=== PATIENT | female | born 1950 | race Caucasian/White ===

== ENCOUNTER 2019-07-20 10:14 | Emergency (ER) | payer OTHER ==
[~2019-07-20] VITALS: Ht 147.3 cm; Wt 67.1 kg
[2019-07-20] MEDS ORDERED: CANDESARTAN-HC1 EAC1 (10:59)
== END 2019-07-20 14:43 | disposition home or self-care (01) ==
LOC: ER 10:14
DX: L03.116 Cellulitis of left lower limb (principal); M77.32 Calcaneal spur, left foot; S90.32XS Contusion of left foot, sequela; W22.8XXS Striking against or struck by other objects, sequela

== ENCOUNTER 2021-03-08 10:38 | Emergency (ER) | payer OTHER ==
[~2021-03-08] VITALS: Ht 160 cm; Wt 65.8 kg
[~2021-03-08 10:38] MED LIST: CANDESARTAN-HC1 EAC1
[2021-03-08] MEDS ORDERED: NORVASC10 MG (10:55)
== END 2021-03-09 06:34 | disposition home or self-care (01) ==
LOC: ER 10:38
DX: K29.60 Other gastritis without bleeding (principal); R10.31 Right lower quadrant pain; R10.11 Right upper quadrant pain; R11.2 Nausea with vomiting, unspecified; K82.1 Hydrops of gallbladder; K83.8 Other specified diseases of biliary tract; K80.80 Other cholelithiasis without obstruction; N20.0 Calculus of kidney

== ENCOUNTER 2021-03-12 10:56 | Inpatient (IN) | payer OTHER ==
[~2021-03-12] VITALS: Ht 167.6 cm; Wt 155.0 kg
[~2021-03-12 10:56] MED LIST changes: +NORVASC10 MG
--- NOTE | 2021-03-12 11:10 | NUR ---
SE RECIBE PACIENTE ALERTA ORIENTADA ACOMPANADA DE RIBEIRO HIJA. PACIENTE SE LE JUAN ANTONIO DE MURALI LA SEMANA PASADA POR EL DR HOFFMAN SUZANNE FAMILIAR Y AUN LOS VOMITOS SIGUEN PERSISTENTES, PACIENTE VARBALIZA SENTIR DOLOR ABDOMINAL KYLER.
--- NOTE | 2021-03-12 11:54 | NUR ---
PACIENTE ALERTA Y ORIENTADA EN YOEL MARYJANE ESFERAS, ES ORIENTADA SOBRE ORDENES MEDICAS, REFIERE ENTENDER. SE COLECTAN MUESTRAS DE LABORATORIO, SE CANALIZA VENA, SE ADMINISTRA ANIVAL Y SE REALIZA EKG. PENDIENTE CT SCAN DE PECHO.
[2021-03-13] MEDS ORDERED: OMEPRAZOLE40 MG (16:34)
[2021-03-13] MEDS ORDERED: FAMOTIDINE40 MG (16:34)
[2021-03-13] MEDS ORDERED: PANTOPRAZOLE SO40 MG (16:34)
[2021-03-13] MEDS ORDERED: SERTRALINE HCL25 MG (16:34)
== END 2021-03-24 14:53 | disposition designated cancer center or children's hospital (05) | DRG 280 ==
LOC: ER 10:56 → ICU-2 19:40 → ICU 19:40 → SEC-K 19:40 → MEDJ 03-13 09:15 → SEC-K 03-13 10:33 → ICU-2 03-13 13:00 → ICU 03-18 04:39 → MEDJ 03-20 14:48
PROVIDERS: ADMIT Internal Medicine Cardiovascular Disease; ATTEND Internal Medicine Cardiovascular Disease
PROC: 3E0F7SF Introduction of Other Gas into Respiratory Tract, Via Natural or Artificial Opening (ICD-10-PCS; 2021-03-12)
PROC: B24BZZZ Ultrasonography of Heart with Aorta (ICD-10-PCS; principal; 2021-03-13)
PROC: 4A12X4Z Monitoring of Cardiac Electrical Activity, External Approach (ICD-10-PCS; 2021-03-20)
DX: I21.4 Non-ST elevation (NSTEMI) myocardial infarction (principal); J18.8 Other pneumonia, unspecified organism; J96.01 Acute respiratory failure with hypoxia; I10 Essential (primary) hypertension; R53.1 Weakness; Z20.822 Contact with and (suspected) exposure to COVID-19; Z99.89 Dependence on other enabling machines and devices; K81.9 Cholecystitis, unspecified

== ENCOUNTER 2021-10-09 22:26 | Emergency (ER) | payer OTHER ==
[~2021-10-09] VITALS: Ht 149.9 cm; Wt 59.0 kg
[~2021-10-09 22:26] MED LIST changes: +FAMOTIDINE40 MG; +OMEPRAZOLE40 MG; +PANTOPRAZOLE SO40 MG; +SERTRALINE HCL25 MG
[2021-10-09] MEDS ORDERED: PLAVIX75 MG (22:48)
[2021-10-09] MEDS ORDERED: LYRICA100 MG (22:49)
[2021-10-09] MEDS ORDERED: ATORVASTATIN CA40 MG (22:49)
[2021-10-09] MEDS ORDERED: CARVEDILOL ER40 MG (22:49)
[2021-10-10] MEDS ORDERED: CEFDINIR300 MG PO (07:59)
== END 2021-10-10 08:29 | disposition home or self-care (01) ==
LOC: ER 22:26
DX: I95.89 Other hypotension (principal); Z20.822 Contact with and (suspected) exposure to COVID-19

== ENCOUNTER 2021-10-26 07:58 | Outpatient (CLI) | payer OTHER ==
[~2021-10-26 07:58] MED LIST changes: +ATORVASTATIN CA40 MG; +CARVEDILOL ER40 MG; +CEFDINIR300 MG PO; +LYRICA100 MG; +PLAVIX75 MG
== END 2021-10-26 08:05 | disposition home or self-care (01) ==
LOC: TOM 07:58
PROVIDERS: ATTEND Internal Medicine Cardiovascular Disease
DX: I26.99 Other pulmonary embolism without acute cor pulmonale (principal)
CPT/HCPCS: 71260; Q9965

== ENCOUNTER 2022-07-08 08:46 | Outpatient (CLI) | payer OTHER | END 2022-07-08 08:50 | disposition home or self-care (01) | LOC: MAMO-SONO 08:46 | PROVIDERS: ATTEND Internal Medicine Cardiovascular Disease | DX: Z12.31 Encounter for screening mammogram for malignant neoplasm of breast (principal); N63.11 Unspecified lump in the right breast, upper outer quadrant ==

== ENCOUNTER → 2022-07-08 | Outpatient (CLI) | payer OTHER | END | disposition home or self-care (01) | LOC: NUCLEAR 10:00 | PROVIDERS: ATTEND Internal Medicine Cardiovascular Disease | DX: M81.0 Age-related osteoporosis without current pathological fracture (principal); E55.9 Vitamin D deficiency, unspecified; Z88.6 Allergy status to analgesic agent ==

== ENCOUNTER 2022-08-06 08:31 | Emergency (ER) | payer OTHER ==
[~2022-08-06] VITALS: Ht 149.9 cm; Wt 58.1 kg
== END 2022-08-06 13:35 | disposition home or self-care (01) ==
LOC: ER 08:31
DX: S02.2XXA Fracture of nasal bones, initial encounter for closed fracture (principal); S63.501A Unspecified sprain of right wrist, initial encounter; W18.30XA Fall on same level, unspecified, initial encounter; Y93.9 Activity, unspecified; Y92.018 Other place in single-family (private) house as the place of occurrence of the external cause; Y99.9 Unspecified external cause status; Z88.6 Allergy status to analgesic agent; I10 Essential (primary) hypertension

== ENCOUNTER → 2022-10-11 | Outpatient (CLI) | payer OTHER | END | disposition home or self-care (01) | LOC: NUCLEAR 08:42 | PROVIDERS: ATTEND Internal Medicine Cardiovascular Disease | DX: I87.2 Venous insufficiency (chronic) (peripheral) (principal); Z86.718 Personal history of other venous thrombosis and embolism; Z91.013 Allergy to seafood; Z88.8 Allergy status to other drugs, medicaments and biological substances; Z91.040 Latex allergy status ==

== ENCOUNTER 2023-01-21 07:20 | Outpatient (CLI) | payer OTHER | END 2023-01-21 07:21 | disposition home or self-care (01) | LOC: NUCLEAR 07:20 | PROVIDERS: ATTEND Internal Medicine | DX: I25.118 Atherosclerotic heart disease of native coronary artery with other forms of angina pectoris (principal); Z98.61 Coronary angioplasty status; R06.00 Dyspnea, unspecified; I80.209 Phlebitis and thrombophlebitis of unspecified deep vessels of unspecified lower extremity | CPT/HCPCS: 78452; 93017; A9500; J0153 ==